=== PATIENT | female | born 1945 | race African-American/Black ===

== ENCOUNTER 2017-03-25 10:20 | Day surgery (SDC) | payer OTHER ==
[2017-03-24 11:43] VITALS: BMI 24.1
[2017-03-25] MEDS ORDERED: PROPOFOL 20 ML ONE (11:30)
[2017-03-25 13:33] VITALS: BP 153/57; PULSE 73; TEMP 98.2
--- NOTE | 2017-03-28 15:37 | PATH ---
Surgical Pathology Report Patient Name: WILLIAMS MATHEW [facility]. Rec. #: [id number] /Age/Gender: 1945 (Age: 71) / F Account: [id number] Location: [facility]-ENDOSCOPY Taken: 03/25/2017 Received: 03/25/2017 Reported: 03/28/2017 Physicians: Sabino Jordan M.D. Specimen(s) Received A: BX DUODENUM B: BX DUODENUM C: BX ANTRUM D: BX GASTRIC BODY E: BX DISTAL AND MID ESOPHAGUS Clinical History Preoperative diagnosis: GERD Postoperative diagnosis: Same Final Diagnosis A. 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 B. DUODENUM, SECOND PORTION, BIOPSY: DUODENAL MUCOSA WITHOUT SIGNIFICANT PATHOLOGIC FINDINGS. C. STOMACH, ANTRUM, BIOPSY: GASTRIC ANTRAL MUCOSA WITH SEVERE CHRONIC ACTIVE GASTRITIS. IMMUNOHISTOCHEMICAL STAIN FOR H. PYLORI IS POSITIVE (NUMEROUS). D. STOMACH, BODY, BIOPSY: GASTRIC BODY MUCOSA WITH SEVERE CHRONIC ACTIVE GASTRITIS. IMMUNOHISTOCHEMICAL STAIN FOR H. PYLORI IS POSITIVE (NUMEROUS). SMALL FRAGMENT OF SMALL BOWEL MUCOSA WITHOUT SIGNIFICANT PATHOLOGIC FINDINGS. E. DISTAL AND MID ESOPHAGUS, BIOPSY: SQUAMOUS MUCOSA WITH VASCULAR CONGESTION AND MILD REFLUX ESOPHAGITIS. Electronically Signed Alma Rosa Vazquez M.D. Gross Description A. Received in formalin, labeled "biopsy second portion of duodenal white plaque" are 2 luna, irregular portions of soft tissue measuring 0.4 and 0.6 cm. in greatest dimension. The specimens are submitted in toto in one cassette. B. Received in formalin, labeled "biopsy second portion of duodenum and bulb" are 4 luna, irregular portions of soft tissue ranging from 0.1-0.5 cm. in greatest dimension. The specimens are submitted in toto in one cassette. C. Received in formalin, labeled "biopsy antrum" are 2 luna, irregular portions of soft tissue averaging 0.2 cm. in greatest dimension. The specimens are submitted in toto in one cassette. D. Received in formalin, labeled "biopsy gastric body" are 5 luna, irregular portions of soft tissue ranging from 0.1-0.2 cm. in greatest dimension. The specimens are submitted in toto in one cassette. E. Received in formalin, labeled "biopsy distal and mid esophagus" are 5 luna, irregular portions of soft tissue ranging from 0.1-0.3 cm. in greatest dimension. The specimens are submitted in toto in one cassette. 03/25/201703/25/2017
== END 2017-03-25 13:32 | disposition home or self-care (01) ==
LOC: JASU-ENDO 10:20
PROVIDERS: ATTEND Internal Medicine Gastroenterology
PROC: 0DB68ZX Excision of Stomach, Via Natural or Artificial Opening Endoscopic, Diagnostic (ICD-10-PCS; 2017-03-25)
PROC: 0DB38ZX Excision of Lower Esophagus, Via Natural or Artificial Opening Endoscopic, Diagnostic (ICD-10-PCS; 2017-03-25)
PROC: 0DB58ZX Excision of Esophagus, Via Natural or Artificial Opening Endoscopic, Diagnostic (ICD-10-PCS; 2017-03-25)
PROC: 0DB98ZX Excision of Duodenum, Via Natural or Artificial Opening Endoscopic, Diagnostic (ICD-10-PCS; principal; 2017-03-25 11:30)
DX: K21.0 Gastro-esophageal reflux disease with esophagitis (principal); K29.50 Unspecified chronic gastritis without bleeding
CPT/HCPCS: 88305-TC; 88342-TC